=== PATIENT | male | born 1955 | race Caucasian/White ===

== ENCOUNTER 2018-02-14 08:54 | Day surgery (SDC) | payer OTHER, SELFPAY ==
--- NOTE | 2018-02-14 | PATH_ITS ---
[facility] Accession Number: [id number] . 01 Material submitted: . CECAL POLYP . 02 Diagnosis: Cecal Polyps: Fragment of tubular adenoma and fragments of colonic mucosa with no diagnostic abnormality (two polyps removed). MRV/02/15/2018 . 02 Electronically signed: . Aaron Faye MD, PhD, Pathologist NPI- [id number] . 01 Gross description: . Received in one formalin-filled container labeled with the patient's name and labeled cecal polyp x2, are multiple less than 0.1 cm to 0.3 cm portions of tissue, entirely submitted in one cassette. ([id number]) /FRR . 02 Pathologist provided ICD-10: D12.0, K63.5 . 02 CPT . 489367 Performed at: 01 [facility] [address] [place] [address], [place], [place] [id number] MD Corwin España MD Phone: [phone] Performed at: 02 [facility] [place] [address] [place], [place] [id number] MD Nader Roe MD Phone: [phone]
[2018-02-14 09:13] VITALS: BMI 24.2
[2018-02-14 09:22] VITALS: BP 121/78; PULSE 62; RESP 20; TEMP 36.1; O2SAT 100
[2018-02-14] MEDS: SODIUM CHLORIDE 0.9% 1,000 ML 200 ML IV (09:27)
[2018-02-14 09:30] VITALS: BMI 24.2
--- NOTE | 2018-02-14 09:32 | PM.HP.1 ---
History of Present Illness Date Patient Seen: 02/14/18 Time Patient Seen: 09:32 Chief complaint: [id number] SCREENING COLONOSCOPY Narrative: 62-year-old male who presents for colorectal screening. He has had no prior examination for such. He currently denies any recent gastrointestinal symptoms. No nausea, vomiting, abdominal pain, loss of appetite, unexplained weight loss, change in bowel habits, diarrhea, constipation, melena, hematochezia, or bright red blood per rectum. Patient History Medical History No significant past medical history (Acute) Tobacco abuse (Acute) Surgical History History of back surgery (Acute) Family & Social History Family History: Reviewed 02/14/18 by Stu Ventura MD Social History: household members spouse Meds Allergies Allergy/AdvReac Type Severity Reaction Status Date / Time No Known Drug Allergies Allergy Verified 02/14/18 09:16 Review of Systems Review of Systems All systems reviewed & are unremarkable except as noted in HPI and below Exam Vital Signs (past 8 hours): - 02/14/18 09:22 Temperature 97.0 F L Pulse Rate 62 Respiratory Rate 20 Blood Pressure 121/78 H Pulse Oximetry 100 Oxygen Delivery Method Room Air Narrative Exam Narrative: Well-nourished well-developed male in no acute distress lying comfortably in the gurney. Alert oriented x3. is at the bedside Sclera nonicteric Chest clear to auscultation bilaterally with regular rate and rhythm. No murmurs, gallops, rubs Abdomen soft, nondistended, nontender, no masses Extremities show no clubbing, cyanosis, or edema Objective Labs Labs: No recent laboratory or radiographic studies for review Assessment & Plan Plan: Assessment/Plan Narrative: 62-year-old male requiring colorectal screening by age criteria. He has had no prior history of examination for such. Colonoscopy is currently recommended. Technical details of the procedure were explained at length. Risks, benefits, and alternatives were discussed. Risks including but not limited to sedation, aspiration, bleeding, pain, missed lesion, incomplete examination, need for further radiographic studies, colonic perforation, need for major abdominal surgery, and all attendant risks of major surgery were explained in detail. All questions were answered to his satisfaction, and the patient voiced understanding. Consent was placed on the chart. We will proceed as above.
--- NOTE | 2018-02-14 09:36 | P.HP_ITS ---
History of Present Illness Date Patient Seen: 02/14/18 Time Patient Seen: 09:32 Chief complaint: [id number] SCREENING COLONOSCOPY Narrative: 62-year-old male who presents for colorectal screening. He has had no prior examination for such. He currently denies any recent gastrointestinal symptoms. No nausea, vomiting, abdominal pain, loss of appetite, unexplained weight loss, change in bowel habits, diarrhea, constipation, melena, hematochezia, or bright red blood per rectum. Patient History Medical History No significant past medical history (Acute) Tobacco abuse (Acute) Surgical History History of back surgery (Acute) Family & Social History Family History: Reviewed 02/14/18 by Stu Ventura MD Social History: household members spouse Meds Allergies Allergy/AdvReac Type Severity Reaction Status Date / Time No Known Drug Allergies Allergy Verified 02/14/18 09:16 Review of Systems Review of Systems All systems reviewed & are unremarkable except as noted in HPI and below Exam Vital Signs (past 8 hours): - 02/14/18 09:22 Temperature 97.0 F L Pulse Rate 62 Respiratory Rate 20 Blood Pressure 121/78 H Pulse Oximetry 100 Oxygen Delivery Method Room Air Narrative Exam Narrative: Well-nourished well-developed male in no acute distress lying comfortably in the gurney. Alert oriented x3. is at the bedside Sclera nonicteric Chest clear to auscultation bilaterally with regular rate and rhythm. No murmurs , gallops, rubs Abdomen soft, nondistended, nontender, no masses Extremities show no clubbing, cyanosis, or edema Objective Labs Labs: No recent laboratory or radiographic studies for review Assessment & Plan Plan: Assessment/Plan Narrative: 62-year-old male requiring colorectal screening by age criteria. He has had no prior history of examination for such. Colonoscopy is currently recommended. Technical details of the procedure were explained at length. Risks, benefits, and alternatives were discussed. Risks including but not limited to sedation, aspiration, bleeding, pain, missed lesion, incomplete examination, need for further radiographic studies, colonic perforation, need for major abdominal surgery, and all attendant risks of major surgery were explained in detail. All questions were answered to his satisfaction, and the patient voiced understanding. Consent was placed on the chart. We will proceed as above.
--- NOTE | 2018-02-14 09:36 | PM.PREOP ---
Pre-operative Note Interval Note Pre-op Check: Yes History & Physical Reviewed by Physician, Yes Exam Performed and Yes History & Physical exam performed today by Physician Changes: No H&P completed within 30 days and has changed as indicated here:: Patient seen and examined today. History physical examination documented and placed on the chart. We will proceed with colonoscopy today as planned. ASA Class (for procedural sedation): I
[2018-02-14] MEDS: fentaNYL 250 MCG/5 ML INJ IV (09:52)
[2018-02-14] MEDS: MIDAZOLAM 5 MG/5 ML VIAL IV (09:52)
--- NOTE | 2018-02-14 10:01 | PM.OP.ENDO ---
Operative Date/Time/Diagnoses Date of procedure: 02/14/18 Time of procedure: 10:01 Pre-op diagnosis: Colorectal screening Post-op diagnosis: other (Colon polyps) Procedure & Clinicians Study performed: 1. Sedation per surgeon 2. Colonoscopy with cold forceps polypectomies Same procedure as scheduled: Yes Indications: 62-year-old male who requires colorectal screening by age criteria. He has no history of any prior such examination. Colonoscopy is currently recommended. Surgeon: Stu Ventura Procedure Notes SCOAP/Timeout: Yes Procedure in detail: After obtaining informed consent, the patient was brought to the GI suite and placed in the left lateral decubitus position on the examination table. After placement of appropriate monitors, the patient was given incremental doses of Versed and Fentanyl until an appropriate level of sedation was achieved. A time out was held per SCOAP protocol. A digital rectal examination was performed and did not reveal any masses or obstructing lesions. The colonoscope was gently passed into the patient's anus and the entire colon navigated to the level of the cecum with minimal difficulty. Terminal ileum was intubated and noted to be grossly normal. Once in the cecum, the scope was withdrawn being sure to go before and beyond all mucosal folds and prominences and get an excellent examination. The findings are noted above. At the level of the rectal vault, the scope was retroflexed and the internal anal canal was examined. The scope was straightened and air aspirated from the colon. The instrument was removed from the patient's body and the procedure was concluded. The patient was allowed to awaken from sedation without difficulty and taken to the post-anesthesia care unit in good condition. Scope withdrawal time: 12:23 min Sedation minutes: 23 Findings: diverticulosis and polyp Specimen(s): other (1. Cecal polyps x2) Complications: none Recommendations: Colonscopy in 5 years, High fiber diet and Will call with biopsy results Plan for aftercare: 1. Discharge to home Follow up: as needed Disposition: PACU
[2018-02-14 10:05] VITALS: BP 146/90; PULSE 64; RESP 16; TEMP 36.7; O2SAT 97
== END 2018-02-14 10:24 | disposition home or self-care (01) ==
PROVIDERS: PCP Family Medicine; Visit Provider Surgery
PROC: 0DJD8ZZ Inspection of Lower Intestinal Tract, Via Natural or Artificial Opening Endoscopic (ICD-10-PCS; CPT 45378; principal; 2018-02-14 09:45)
DX: Z12.11 Encounter for screening for malignant neoplasm of colon (principal); F17.210 Nicotine dependence, cigarettes, uncomplicated; K57.30 Diverticulosis of large intestine without perforation or abscess without bleeding; D12.0 Benign neoplasm of cecum; K63.5 Polyp of colon
CPT/HCPCS: 45380; 99152; 99153; J2250; J3010

== ENCOUNTER → 2021-01-29 09:03 | Outpatient (CLI) | payer OTHER, SELFPAY ==
--- NOTE | 2021-01-29 | DI.MRI.S_ITS ---
PROCEDURE: MR STROKE Pre- and post-contrast brain MRI, non-contrast brain MR angiogram, pre- and postcontrast neck MR angiogram INDICATIONS: Transient cerebral ischemic attack, unspecified TECHNIQUE: Brain: Noncontrast axial T1 spin echo, axial T2 fast spin echo, sagittal and axial FLAIR, coronal T2 fast spin echo, axial gradient echo, axial diffusion and ADC through the brain. After the administration of contrast, axial 3D VIBE of the cranial vasculature and brain. Brain MRA: Non-contrast 3-D time of flight MR angiogram, with multiple demwpsg-hjumoybjm-apuluwmksx (MIP) reformats performed. Neck MRA: Axial and sagittal TruFISP through the neck. Coronal dynamic MR angiogram during administration of contrast in the arterial and venous phases, with 3-dimenstional kxqvijk-bwdhgdejb-lfskfrjwqa (MIP) reformats constructed from subtraction images. COMPARISON: None. FINDINGS: Image quality: Excellent. BRAIN: CSF spaces: No hydrocephalus is seen. Mass effect is seen upon the posterior horn of the right lateral ventricle. Basal cisterns are patent. No extra-axial fluid collections. Brain: There is an irregularly enhancing mass seen involving the posterior medial aspect of the right cerebral hemisphere, with involvement of the posterior aspect of the corpus callosum. In greatest axial dimension, this mass measures 5.3 x 5.3 cm, with a craniocaudal extent of 5.6 cm. Hypertrophied, tortuous vessels can be seen within this mass. There is associated mass effect seen, yet without midline shift. Surrounding brain edema is seen. No intracranial bleeds. Lawton-white matter interface is normal. Diffusion weighted images show no acute ischemic insults. Brainstem appears normal. Normal intravascular flow voids are present. Skull and face: Calvarial marrow signal is normal. Orbits appear normal. Sinuses: Sinuses and mastoids are clear. BRAIN MR ANGIOGRAM: Anterior circulation: Intracranial internal carotid arteries are normal in size and enhancement. The flow within the paired anterior cerebral arteries is normal and symmetric. The flow within the middle cerebral arteries is normal and symmetric. The anterior communicating artery is seen. No stenoses, occlusions, or aneurysms. Posterior circulation: The visualized portions of the vertebral arteries demonstrate normal caliber, and join to form a normal appearing basilar artery. The flow within the posterior cerebral arteries is normal and symmetric. No stenoses, occlusions, or aneurysms. NECK MR ANGIOGRAM: Carotids: Great vessels demonstrate a conventional anatomy as they arise from the aortic arch. The origins of the common carotid arteries appear patent. The calibers and courses of both common carotid arteries are normal. The bifurcation regions appear normal bilaterally. The internal carotid arteries demonstrate normal course and caliber. Posterior circulation: The origins of the vertebral arteries appear patent. More superior portions of both vertebral arteries demonstrate normal course and caliber, and join to form a normal appearing basilar artery. Miscellaneous: Subclavian arteries appear patent. Pre-contrast images through the neck show no soft tissue abnormalities. IMPRESSION: BRAIN MRI: There is an infiltrating mass seen involving the posterior medial aspect of the right cerebral hemisphere. 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 Neurosurgery consultation is recommended. BRAIN MR ANGIOGRAM: No significant intracranial arterial abnormality is seen. NECK MR ANGIOGRAM: Within the arteries of the neck, no hemodynamically significant stenosis can be seen. Note: Attempts were made to contact Dr. Parsons at her office and on her cell phone at the time of this dictation. However, she could not be reached. Attempts will be continued to reach Dr. Parsons with the findings of this case by radiology department staff. Dictated by: Luis Sanchez M.D. on 01/29/2021 at 17:27 Approved by: Luis Sanchez M.D. on 01/29/2021 at 17:37
== END ==
PROVIDERS: PCP Student in an Organized Health Care Education/Training Program; Referring Provider Student in an Organized Health Care Education/Training Program; Visit Provider Student in an Organized Health Care Education/Training Program
DX: G45.9 Transient cerebral ischemic attack, unspecified (principal); G93.9 Disorder of brain, unspecified
CPT/HCPCS: 70548; 70553; A9579

== ENCOUNTER → 2021-02-03 08:53 | Outpatient (CLI) | payer OTHER, SELFPAY ==
--- NOTE | 2021-02-03 08:53 | DI.ECHO.S_ITS ---
[facility]---------+ [facility] +---------+ : : [address] : : : : [id number] : : : : Phone: [phone] Echocardiogram Report + + :Name: ROSS BARAJAS Study Date: 02/03/2021 Height: 66 in : :[facility] ReadingLocation: Weight: 162 lb : : Gender: Male BSA: 1.8 m2 : :: 1955 Age: 65 yrs BP: 140/96 mmHg: :Reason For Study: TRANSIENT CEREBRAL ISCHEMIC ATTACK : :Ordering Physician: SHAHNAZ, : :MATHEW Performed By: Quynh Gutierrez : :Referring: MATHEW CHRISTIE : + + Interpretation Summary Normal both left and right ventricle size and function. The ejection fraction is 60-65%. Mild mitral regurgitation. Mild tricuspid regurgitation. Injection of contrast documented no interatrial shunt. Procedure: A two-dimensional transthoracic echocardiogram with color flow and Doppler was performed. The study quality was technically adequate. There is no prior echocardiogram noted for this patient. The patient was in sinus rhythm with heart rates between 59-73 bpm during the exam. Left Ventricle: The left ventricle is normal in size and wall thickness. The ejection fraction is estimated to be 60-65%. There are no focal wall motion abnormalities. Right Ventricle: The right ventricle is normal in size and function. Atria: The left atrial size is normal. Right atrial size is normal. There is no Doppler evidence for an interatrial shunt. Injection of contrast documented no interatrial shunt. Bubble study was captured on image frame(s) # 88. Mitral Valve: The mitral valve is normal in structure and function. There is mild mitral regurgitation. Aortic Valve: The aortic valve is trileaflet. The aortic valve opens well. There is no aortic valve stenosis. No aortic regurgitation is present. Tricuspid Valve: The tricuspid valve is normal in structure and function. There is mild tricuspid regurgitation. Pulmonary artery pressures cannot be estimated because of the lack of a measurable TR jet velocity but the IVC suggests a CVP of around 3 mmHg. Pulmonic Valve: The pulmonic valve leaflets are thin and pliable; valve motion is normal. There is mild pulmonic regurgitation. Great Vessels: The aortic root is normal size. The dimensions of the ascending aorta are normal. The IVC is of normal diameter and collapses greater than 50% with a sniff. This suggests a low right atrial pressure of 3 mm Hg. Pericardium/ Pleura There is no pericardial effusion. There is no pleural effusion. MMode/2D Measurements & Calculations LVIDd: 4.7 cm LVOT diam: 2.0 cm LVIDs: 3.3 cm Ao root diam: 3.2 cm FS: 29.9 % asc Aorta Diam: 3.2 cm IVSd: 0.80 cm LVPWd: 0.77 cm LV sandoval. diameter/BSA (cm/m^2): 2.5 LV sys. diameter/BSA (cm/m^2): 1.8 LA A2 area: 12.0 cm2 RA long axis: 4.5 cm LA A4 area: 13.1 cm2 RA area: 13.3 cm2 LA length (vol): 4.7 cm RA vol: 33.2 ml LA vol: 28.5 ml RA : 18.1 ml/m2 LA vol index: 15.6 ml/m2 IVC diam: 0.97 cm RVD1 (basal): 3.3 cm TAPSE: 2.0 cm Doppler Measurements & Calculations Ao V2 max: 134.7 cm/sec LVOT Max Margarito: 91.3 cm/sec Ao V2 mean: 96.9 cm/sec LV V1 max P.3 mmHg Ao max P.3 mmHg LV V1 VTI: 18.9 cm Ao mean P.1 mmHg SARAY(I,D): 2.1 cm2 Ao V2 VTI: 27.7 cm SARAY(V,D): 2.1 cm2 sev ratio: 0.68 SARAY indexed to BSA (cm^2/m^2): 1.1 MV E max margarito: 62.1 cm/sec PA V2 max: 100.9 cm/sec MV A max margarito: 74.0 cm/sec PA V2 mean: 69.5 cm/sec MV E/A: 0.84 PA mean P.2 mmHg Med Peak E' Margarito: 8.5 cm/sec PA pr(Accel): 17.3 mmHg E/E' med: 7.3 Lat Peak E' Margarito: 11.2 cm/sec E/E' lat: 5.6 E/e' average: 6.4 MV dec time: 0.27 sec SV(LVOT): 57.3 ml Electronically signed by: Anu Sparrow on Reading Physician:02/03/2021 04:12 PM
== END ==
PROVIDERS: PCP Student in an Organized Health Care Education/Training Program; Referring Provider Student in an Organized Health Care Education/Training Program; Visit Provider Student in an Organized Health Care Education/Training Program
DX: G45.9 Transient cerebral ischemic attack, unspecified (principal); I08.1 Rheumatic disorders of both mitral and tricuspid valves
CPT/HCPCS: 93306

== ENCOUNTER → 2021-03-17 14:59 | Outpatient (ROUT) | payer OTHER, SELFPAY ==
[2021-03-17 15:59] LABS: COVID-19 CEPHEID PCR (VTM/NP) Negative (Negative)
== END ==
PROVIDERS: PCP Student in an Organized Health Care Education/Training Program; Visit Provider Family Medicine
DX: Z20.822 Contact with and (suspected) exposure to COVID-19 (principal)
CPT/HCPCS: U0003